=== PATIENT | male | born 1970 | race African-American/Black ===

== ENCOUNTER 2017-04-14 02:40 | Emergency (ER) | payer MEDICAID ==
[~2017-04-14] VITALS: Ht 172.7 cm; Wt 106.0 kg
[~2017-04-14 02:40] MED LIST: ALBU2.5V13 IH; BECL8.7A6 IH; HYDR25TA PO; LISI30TA36 PO; NIFE30TA83 PO
[2017-04-14] MEDS ORDERED: PREDNISONE 20MG TABLET PO STA (03:46)
[2017-04-14] MEDS ORDERED: IPRATROPIUM BROMIDE (0.02%) 0.5MG/2.5ML NEB HHN STA (03:46)
[2017-04-14] MEDS ORDERED: ALBUTEROL (0.083%) 2.5MG/3ML NEB HHN STA (03:46)
[2017-04-14 05:50] VITALS: BP 145/92
== END 2017-04-14 05:51 | disposition home or self-care (01) ==
LOC: ER 02:40
DX: J45.901 Unspecified asthma with (acute) exacerbation (principal); F17.200 Nicotine dependence, unspecified, uncomplicated; F12.10 Cannabis abuse, uncomplicated; I10 Essential (primary) hypertension
CPT/HCPCS: 94644; 99285; J7512; J7611; Z7610

== ENCOUNTER 2018-08-13 21:02 | Emergency (ER) | payer MEDICAID ==
[~2018-08-13] VITALS: Ht 177.8 cm; Wt 93.0 kg
[2018-08-14 04:26] VITALS: BP 140/88
== END 2018-08-14 04:28 | disposition home or self-care (01) ==
LOC: ER 23:51
DX: S00.11XA Contusion of right eyelid and periocular area, initial encounter (principal); I10 Essential (primary) hypertension; M81.0 Age-related osteoporosis without current pathological fracture; J45.909 Unspecified asthma, uncomplicated; F12.10 Cannabis abuse, uncomplicated; F17.200 Nicotine dependence, unspecified, uncomplicated; W01.0XXA Fall on same level from slipping, tripping and stumbling without subsequent striking against object, initial encounter; Y93.89 Activity, other specified; Y92.488 Other paved roadways as the place of occurrence of the external cause
CPT/HCPCS: 70486; 99284

== ENCOUNTER 2019-07-14 18:12 | Emergency (ER) | payer MEDICAID ==
[~2019-07-14] VITALS: Ht 188 cm; Wt 109.0 kg
[2019-07-14 18:14] VITALS: BP 149/103
== END 2019-07-14 18:30 | disposition left against medical advice (07) ==
LOC: ER 18:12
DX: Z53.21 Procedure and treatment not carried out due to patient leaving prior to being seen by health care provider (principal); I10 Essential (primary) hypertension; J45.909 Unspecified asthma, uncomplicated

== ENCOUNTER 2020-03-29 01:31 | Emergency (ER) | payer MEDICAID ==
[~2020-03-29] VITALS: Ht 172.7 cm; Wt 88.0 kg
[2020-03-29 01:38] VITALS: BP 167/78
[2020-03-29] MEDS ORDERED: KETOROLAC 30MG/ML VIAL IM ONE (02:30)
== END 2020-03-29 02:38 | disposition left against medical advice (07) ==
LOC: ER 01:31
DX: F10.229 Alcohol dependence with intoxication, unspecified (principal); G89.29 Other chronic pain; M25.562 Pain in left knee; M25.561 Pain in right knee; I10 Essential (primary) hypertension; J45.909 Unspecified asthma, uncomplicated; F12.10 Cannabis abuse, uncomplicated; Y90.9 Presence of alcohol in blood, level not specified
CPT/HCPCS: 99283

== ENCOUNTER 2022-04-12 14:31 | Emergency (ER) | payer MEDICAID ==
[~2022-04-12] VITALS: Ht 172.7 cm; Wt 86.0 kg
[2022-04-12 16:46] LABS: HEMATOCRIT. 39.3 % (42.0-52.0); HEMOGLOBIN. 12.9 g/dL (14.0-18.0); MEAN CORPUSCULAR HEMOGLOBIN 31.9 pg (28.0-32.0); MEAN CORPUSCULAR VOLUME 97.3 fL (80.0-94.0); MEAN PLATELET VOLUME 7.5 fl (7.4-10.4); PLATELET 192 x1000/uL (130-400); RED BLOOD CELL COUNT 4.04 mill/uL (4.7-6.1); RED CELL DISTRIBUTION WIDTH 14.2 % (11.6-14.6)
[2022-04-12 16:49] VITALS: BP 151/99
[2022-04-12 16:51] LABS: CHLORIDE 103 mEq/L (98-107)
[2022-04-12 16:59] LABS: ETHANOL BLOOD 299 mg/dL
[2022-04-12 17:47] LABS: PLATELET ESTIMATE NORMAL
[2022-04-12 17:56] LABS: *AMPHETAMINES SCREEN URINE NEGATIVE (NEGATIVE); *BARBITURATES SCREEN URINE NEGATIVE (NEGATIVE); *BENZODIAZEPINES SCREEN URINE NEGATIVE (NEGATIVE); *COCAINE SCREEN URINE PRESUMTIVE POSITIVE (NEGATIVE); CANNABINOID URINE SCREEN PRESUMTIVE POSITIVE (NEGATIVE); METHADONE URINE SCREEN NEGATIVE (NEGATIVE); OPIATES URINE SCREEN NEGATIVE (NEGATIVE); PHENCYCLIDINE URINE SCREEN NEGATIVE (NEGATIVE)
== END 2022-04-12 18:23 | disposition home or self-care (01) ==
LOC: ER 14:46
DX: T51.0X1A Toxic effect of ethanol, accidental (unintentional), initial encounter (principal); K62.5 Hemorrhage of anus and rectum; I10 Essential (primary) hypertension; J45.909 Unspecified asthma, uncomplicated; F14.10 Cocaine abuse, uncomplicated; F12.10 Cannabis abuse, uncomplicated; Y90.8 Blood alcohol level of 240 mg/100 ml or more; Z79.01 Long term (current) use of anticoagulants; Y92.018 Other place in single-family (private) house as the place of occurrence of the external cause
CPT/HCPCS: 36415; 80053; 80305; 80320; 85025; 86850; 86900; 93005; 99284; G0480

== ENCOUNTER 2022-06-02 01:46 | Emergency (ER) | payer MEDICAID ==
[~2022-06-02] VITALS: Ht 172.7 cm; Wt 83.5 kg
[2022-06-02] MEDS ORDERED: PREDNISONE 20MG TABLET PO STA (02:10)
[2022-06-02] MEDS ORDERED: ALBUTEROL (0.083%) 2.5MG/3ML NEB HHN STA (02:10)
[2022-06-02] MEDS ORDERED: IPRATROPIUM BROMIDE (0.02%) 0.5MG/2.5ML NEB HHN STA (02:10)
[2022-06-02 03:00] VITALS: BP 133/90
[2022-06-02] MEDS ORDERED: ALBU90AE INH (03:14)
[2022-06-02] MEDS ORDERED: ALBU05 NEB (03:14)
[2022-06-02] MEDS ORDERED: P20 MT (03:14)
== END 2022-06-02 03:51 | disposition home or self-care (01) ==
LOC: ER 01:46
DX: J45.901 Unspecified asthma with (acute) exacerbation (principal); F12.90 Cannabis use, unspecified, uncomplicated; I10 Essential (primary) hypertension
CPT/HCPCS: 94640; 99283; J7512; Z7610